=== PATIENT | male | born 1960 | race Hispanic/Latino ===

== ENCOUNTER 2017-03-07 06:04 | Day surgery (SDC) | payer OTHER ==
[2017-02-25 13:48] VITALS: BMI 31.7
[2017-03-07] MEDS ORDERED: Lidocaine 2% Inj (20ml) ONE (06:33)
[2017-03-07] MEDS ORDERED: Phenylephrine 10 mg/ml Inj ONE (06:33)
[2017-03-07] MEDS ORDERED: Iohexol 350mgl/ml 50 ML ONE (06:33)
[2017-03-07] MEDS ORDERED: Iodixanol 320 MG/ML 200 ML BOTTLE IV ONE (06:34)
[2017-03-07] MEDS ORDERED: Iodixanol 320 MG/ML 100 ML BOTTLE IV ONE (06:34)
[2017-03-07] MEDS ORDERED: Nitroglycerin 50mg in D5W 0 MG/0 ML BOTTLE IV ONE (06:34)
[2017-03-07 07:07] LABS: BASO # 0.02 K/mm3 (0.0-2.0); BASO % 0.2 % (0.0-3.0); EOS # 0.2 (0.0-0.7); GRAN # 6.74 (1.4-6.5); GRAN % 76.5 % (50.0-68.0); HEMATOCRIT 42.5 % (42.0-52.0); LYMPH # 1.2 (1.2-3.4); LYMPH % 13.8 % (22.0-35.0); MEAN CELL VOLUME 88.9 fl (80.0-105.0); MEAN CORPUSCULAR HEMOGLOBIN 30.5 pg (25.0-35.0); MEAN CORPUSCULAR HGB CONC 34.4 g/dl (31.0-37.0); MEAN PLATELET VOLUME 11.5 fl (7.0-11.0); MONO # 0.7 (0.1-0.6); MONO % 7.5 % (1.0-6.0); RED CELL DISTRIBUTION WIDTH 13.2 % (11.5-14.5); WHITE BLOOD COUNT 8.8 10^3/ul (4.5-11.0)
[2017-03-07 07:17] LABS: INR 1.07 (0.93-1.08); PARTIAL THROMBOPLASTIN TIME 28.8 Seconds (23.7-30.8)
[2017-03-07] MEDS ORDERED: Midazolam 2 MG/2 ML VIAL ONE ×2 (07:18→08:06)
[2017-03-07 07:19] LABS: BLOOD UREA NITROGEN 28 mg/dL (7-21); CALCIUM 9.5 mg/dL (8.4-10.5); CARBON DIOXIDE 27 mmol/L (21-33); CHLORIDE 102 mmol/L (98-107); GFR AFRICAN-AMERICAN > 60; GLUCOSE,RANDOM 199 mg/dL (70-110); POTASSIUM 3.8 mmol/L (3.6-5.0); SODIUM 140 mmol/L (132-148)
[2017-03-07] MEDS ORDERED: Eptifibatide 20 mg/10mL Inj IVP ONE (08:15)
[2017-03-07] MEDS ORDERED: Sodium Chloride 0.9% 1,000 ML IV SCH (09:15)
--- NOTE | 2017-03-07 11:15 | CARD ---
APPROVED REPORT EKG Measurement Heart [id number] [place] 146P67 [id number] <Conclusion> Normal sinus rhythm Nonspecific intraventricular conduction delay Borderline ECG
--- NOTE | 2017-03-07 11:21 | CARD ---
APPROVED REPORT EKG Measurement Heart [id number] [place] 142P62 [id number] <Conclusion> Normal sinus rhythm Nonspecific intraventricular conduction delay Borderline ECG
--- NOTE | 2017-03-07 18:36 | CARDCATH ---
PROCEDURE DATE: 03/07/2017 CARDIAC CATHETERIZATION AND PERCUTANEOUS TRANSLUMINAL CORONARY ANGIOPLASTY HISTORY: The patient is a 56-year-old male who presents with a markedly abnormal stress test. PAST MEDICAL HISTORY: The patient's past medical history includes diabetes mellitus, hypertension, hypercholesterolemia as well as an active smoker. The patient's stress test was abnormal in preparation for possible hip surgery. The cardiac catheterization was recommended. PROCEDURE: Left heart catheterization with coronary angiography and left ventriculogram. The right femoral artery was cannulated with a 6-Salvadorean sheath. There were no complications. The findings on catheterization revealed the left ventricle that contracted normally. Estimated ejection fraction of 60%. The right coronary artery was a dominant vessel with intimal irregularities without significant stenoses. The left main artery is unremarkable. The circumflex artery in the proximal portion revealed 90% stenoses. The LAD was diffusely diseased with a long complex lesion extending from the proximal into the midportion of approximately 80% to 90%. Diagonal vessels revealed diffuse atherosclerosis. The patient was given two doses of intravenous Integrilin as well as 5000 units of intravenous heparin. Under fluoroscopic guide, the guiding catheter was placed in the ostium of the left main artery. An 0.014 ATW wire was used to cross the critical lesion and the circumflex artery. A 2.5 balloon was utilized to predilate the lesions in the circumflex artery. A 3.5 x 18 mm drug-eluting stent was placed and deployed spanning two lesions in the circumflex artery at 14 atmospheres of pressure. Repeat coronary angiography revealed an excellent result with no residual stenosis and HUMBERTO III flow. The test was then stopped due to the mild hematoma in the right groin. Angio-Seal was used to close the right femoral artery. The patient tolerated the procedure well. In summary, the procedure was successful PTCA and stent of a critically stenosed proximal circumflex artery. Cardiac catheterization reveals critical lesions in the circumflex artery as well as the LAD. LV function is normal. On the sheath shot, peripheral vascular disease was noted in the iliac arteries. FINDINGS: Given these findings, the patient will need to remain on aspirin indefinitely and Plavix for at least 6 months to a year. His hip surgery will need to be delayed. I have discussed the need for cardiac risk reduction program including cessation of smoking with the patient and his in detail. Roger Razo MD
[2017-03-08 08:58] LABS: BLOOD UREA NITROGEN 18 mg/dL (7-21); CALCIUM 9.4 mg/dL (8.4-10.5); CARBON DIOXIDE 31 mmol/L (21-33); CHLORIDE 100 mmol/L (98-107); GFR AFRICAN-AMERICAN > 60; GLUCOSE,RANDOM 158 mg/dL (70-110); POTASSIUM 4.3 mmol/L (3.6-5.0); SODIUM 142 mmol/L (132-148)
[2017-03-08 09:09] VITALS: O2SAT 95
[2017-03-08 12:22] VITALS: BP 115/82; PULSE 82; RESP 21; TEMP 98.7
--- NOTE | 2017-03-08 12:58 | CARD ---
APPROVED REPORT EKG Measurement Heart [id number] [place] 140P52 [id number] <Conclusion> Normal sinus rhythm Normal ECG
--- NOTE | 2017-03-08 14:29 | PN ---
DATE: 03/08/2017 SUBJECTIVE: The patient is asymptomatic. He is ambulating. OBJECTIVE: VITAL SIGNS: Blood pressure is 115/82, the heart rate is in the 80s. NECK: Negative JVD. LUNGS: Without rales. HEART: S1, S2. EXTREMITIES: Without edema. LABORATORY DATA: Reveals a potassium of 4.3 with a glucose of 158. IMPRESSION: 1. Stable post PTCA and stent of the circumflex artery. 2. Multivessel CAD. 3. COPD. 4. Peripheral vascular disease. 5. Hypertension. 6. Hypercholesterolemia. 7. Diabetes mellitus. PLAN: Given these findings, the patient can be discharged today. The patient will be readmitted next week for staged PTCA of the LAD. Roger Razo MD
== END 2017-03-08 13:56 | disposition home or self-care (01) ==
LOC: CATH 06:04 → 2RSO 09:21 → CATH 03-08 13:56
PROVIDERS: ATTEND Internal Medicine
DX: I25.10 Atherosclerotic heart disease of native coronary artery without angina pectoris (principal); I10 Essential (primary) hypertension; J44.9 Chronic obstructive pulmonary disease, unspecified; I73.9 Peripheral vascular disease, unspecified; F17.200 Nicotine dependence, unspecified, uncomplicated; E78.00 Pure hypercholesterolemia, unspecified; E11.9 Type 2 diabetes mellitus without complications; Z79.84 Long term (current) use of oral hypoglycemic drugs
CPT/HCPCS: 36415 ×2; 80048 ×2; 85025; 85610; 85730; 86850; 86900; 93005 ×2; 93458; 99152; 99153; C1725; C1760; C1769 ×2; C1874; C1887; C2629; C9600; J1327; J1644 ×2; J2250; J3010; J7030; J7040; Q9967

== ENCOUNTER 2017-03-14 06:15 | Day surgery (SDC) | payer OTHER ==
[2017-03-10 11:45] VITALS: BMI 31.4
[2017-03-14 06:55] LABS: BLOOD UREA NITROGEN 33 mg/dL (7-21); CALCIUM 9.5 mg/dL (8.4-10.5); CARBON DIOXIDE 26 mmol/L (21-33); CHLORIDE 102 mmol/L (98-107); CHOLESTEROL 143 mg/dL (130-200); GFR AFRICAN-AMERICAN > 60; GLUCOSE,RANDOM 156 mg/dL (70-110); POTASSIUM 4.1 mmol/L (3.6-5.0); SODIUM 143 mmol/L (132-148)
[2017-03-14 07:01] LABS: INR 1.11 (0.93-1.08); PARTIAL THROMBOPLASTIN TIME 26.4 Seconds (23.7-30.8)
[2017-03-14 07:04] VITALS: O2SAT 20
[2017-03-14 07:09] LABS: BASO # 0.03 K/mm3 (0.0-2.0); BASO % 0.3 % (0.0-3.0); EOS # 0.2 (0.0-0.7); EOS % 1.9 % (1.5-5.0); GRAN # 6.58 (1.4-6.5); GRAN % 75.6 % (50.0-68.0); HEMATOCRIT 40.8 % (42.0-52.0); LYMPH # 1.5 (1.2-3.4); LYMPH % 16.7 % (22.0-35.0); MEAN CELL VOLUME 89.5 fl (80.0-105.0); MEAN CORPUSCULAR HEMOGLOBIN 30.5 pg (25.0-35.0); MEAN CORPUSCULAR HGB CONC 34.1 g/dl (31.0-37.0); MEAN PLATELET VOLUME 11.3 fl (7.0-11.0); MONO # 0.5 (0.1-0.6); MONO % 5.5 % (1.0-6.0); RED CELL DISTRIBUTION WIDTH 13.6 % (11.5-14.5); WHITE BLOOD COUNT 8.7 10^3/ul (4.5-11.0)
[2017-03-14] MEDS ORDERED: Lidocaine 2% Inj (20ml) ONE (09:39)
[2017-03-14] MEDS ORDERED: Iohexol 350 MG/100 ML VIAL ONE (09:40)
[2017-03-14] MEDS ORDERED: Iohexol 350mgl/ml 50 ML ONE (09:40)
[2017-03-14] MEDS ORDERED: Midazolam 2 MG/2 ML VIAL ONE ×2 (09:41→09:58)
[2017-03-14] MEDS ORDERED: Nitroglycerin 50mg in D5W 0 MG/0 ML BOTTLE IV ONE (09:50)
[2017-03-14] MEDS ORDERED: Eptifibatide 20 mg/10mL Inj IVP ONE (10:27)
[2017-03-14] MEDS ORDERED: Sodium Chloride 0.9% 1,000 ML IV SCH (11:00)
--- NOTE | 2017-03-14 11:48 | CARDCATH ---
PROCEDURE DATE: 03/14/2017 PROCEDURE: PTCA and stent of an LAD. HISTORY: The patient is a 56-year-old male who presents for PTCA and stent to the LAD. The patient's past medical history includes COPD, peripheral vascular disease, diabetes mellitus and hypercholesterolemia. The patient underwent successful PTCA and stent of multiple lesions in the circumflex artery last week and presents for PTCA of a critically stenosed LAD. DESCRIPTION: The left femoral artery was cannulated with a 6-Tamazight sheath. There were no complications. FINDINGS: The findings on initial coronary angiography revealed patent stents in the circumflex artery; in the midportion of the obtuse marginal branch, there was a 50% stenosis noted. The LAD revealed a long, critical lesion that extended to the proximal, into the bend of the midportion of the LAD. The stenoses were approximately 80%. The patient was started on intravenous Angiomax. On the fluoroscopic guide, the guiding catheter was placed in the ostium of the left main artery and 0.014 ATW wire was placed past critical lesion. A second wire was placed for better support. A 2.5 balloon was utilized to predilate the lesion. Two drug-eluting stents were placed and deployed in the mid extending into the proximal LAD. Postdilatation was performed with a 3.25 noncompliant balloon. Repeat coronary angiography revealed an excellent result with no residual stenosis and HUMBERTO III flow. Angio-Seal was used to close the femoral artery site. The patient tolerated the procedure well. SUMMARY: In summary, the procedure was successful PTCA and stent of a long LAD stenosis extending from the proximal into the midportion of the LAD. Coronary angiography revealed a patent stent in the circumflex artery with a 50% stenosis in the midportion. Given these findings, the patient will need to be on aspirin indefinitely and change to Effient given that his PRU is subtherapeutic with Plavix. We will start the patient on Effient. The patient needs to continue to avoid smoking and undergo a strict cardiac risk reduction program. Roger Razo MD
[2017-03-14] MEDS ORDERED: Ergocalciferol 50,000 Intl Units Cap PO SCH (12:00)
[2017-03-14] MEDS: ICOSAPENT ETHYL 2 GM PO SCH ×2 (14:14→17:27)
[2017-03-14] MEDS: Pantoprazole 20 mg EC Tab PO SCH (17:25)
[2017-03-14 19:01] VITALS: BP 107/64; RESP 20; TEMP 97
--- NOTE | 2017-03-14 20:50 | CARD ---
APPROVED REPORT EKG Measurement Heart [id number] [place] 148P56 [id number] <Conclusion> Normal sinus rhythm Normal ECG
[2017-03-15] MEDS: Pantoprazole 20 mg EC Tab PO SCH (06:26)
[2017-03-15 06:51] LABS: BASO # 0.03 K/mm3 (0.0-2.0); BASO % 0.4 % (0.0-3.0); EOS # 0.2 (0.0-0.7); EOS % 1.9 % (1.5-5.0); GRAN # 5.9 (1.4-6.5); GRAN % 74.1 % (50.0-68.0); HEMATOCRIT 37.5 % (42.0-52.0); LYMPH # 1.3 (1.2-3.4); LYMPH % 16.6 % (22.0-35.0); MEAN CELL VOLUME 90.1 fl (80.0-105.0); MEAN CORPUSCULAR HEMOGLOBIN 30.3 pg (25.0-35.0); MEAN CORPUSCULAR HGB CONC 33.6 g/dl (31.0-37.0); MEAN PLATELET VOLUME 11.4 fl (7.0-11.0); MONO # 0.6 (0.1-0.6); RED CELL DISTRIBUTION WIDTH 13.9 % (11.5-14.5)
[2017-03-15 07:07] LABS: BLOOD UREA NITROGEN 22 mg/dL (7-21); CALCIUM 9.1 mg/dL (8.4-10.5); CARBON DIOXIDE 28 mmol/L (21-33); CHLORIDE 102 mmol/L (95-110); GFR AFRICAN-AMERICAN > 60; GLUCOSE,RANDOM 139 mg/dL (70-110); POTASSIUM 4.7 mmol/L (3.6-5.0); SODIUM 141 mmol/L (132-148)
--- NOTE | 2017-03-15 08:08 | HP ---
HISTORY OF PRESENT ILLNESS: The patient is a 56-year-old morbidly obese male who has been admitted after cardiac catheterization and angioplasty today, which is the second angioplasty by Dr. Razo. The patient was admitted after the angioplasty of the left anterior descending artery. The patient was recently hospitalized on 03/07/2017 for angioplasty of other vessel. The patient's code status is FULL CODE. Living will advance directive none. ALLERGIES: NONE. Height is 5 feet 8 inches. Weight is 270. BMI is 32. SOCIAL HISTORY: Positive for active smoking. Denies alcohol. Denies drug use. Denies communicable transmissible disease. HOME MEDICATION: Vascepa 2 g twice a day, Lipitor 20 mg daily, Ecotrin 81 mg daily, vitamin D3 50,000 units three times a week, Edarbyclor 40/25 daily, Mobic 15 mg daily, Plavix 75 mg daily, metformin 500 mg once or twice a day. PAST MEDICAL AND SURGICAL HISTORY: The patient has recently started seeing me in the last month or two. The patient has not been seen by any doctor for many years. The patient's past medical history is significant for hypertension, history of obesity, history of dyslipidemia, hypertriglyceridemia, history of hypovitaminosis D, history of hypertension, history of type 2 [id number] diabetes mellitus, history triglyceridemia, history of severe degenerative joint disease and severe osteoarthritis of the hip, history of gait dysfunction. The patient recently underwent stress test with Dr. Razo also, which was found to be abnormal in anticipation for hip surgery which was supposed to be done, but the patient needed a cardiac clearance for which the patient underwent a stress test which was abnormal and on the basis of those tests, the patient was scheduled for cardiac catheterization on 03/07/2017 and 03/14/2017. The patient's past medical history is also significant for gait dysfunction, history of hip pain, history of left ventricular ejection fraction of 63%, history of aortic valve sclerosis without stenosis, history of abnormal myocardial stress test showing equivocal SPECT myocardial perfusion study with reversible apical inferior defect suspicious of an ischemia with a left ventricular ejection fraction of 77%. The patient's past medical history is significant for obesity, history of questionable noncompliance in the past. The patient's past medical history is significant for multivessel coronary artery disease, history of angioplasty of the left circumflex with drug-eluting stent of 03/07/2017, history of 90% stenosis of the LAD and status post stent placement of the left LAD, history of multivessel coronary artery disease, history of abnormal stress test, history of diabetes mellitus, history of dyslipidemia. The patient is seen in telemetry 273, bed #2. The patient is lying in the bed post cardiac catheterization. PHYSICAL EXAMINATION: VITAL SIGNS: T-max is 97.1. Telemetry shows sinus rhythm, heart rate 65-68, blood pressure 116/62, 137/102, respirations 18-20. HEENT: Head examination normocephalic, atraumatic. HEENT examination shows pink conjunctivae. Anicteric sclerae. No oropharyngeal lesion. No neck rigidity. CHEST: Symmetrical. LUNGS: Shows no rales, crackles, or wheezing. Occasional rhonchi. CARDIOVASCULAR: S1 and S2, regular rhythm. Questionable soft systolic murmur right second intercostal space. ABDOMEN: Protuberant. Positive bowel sound. Positive ecchymosis of the right groin noted. Left groin dressing noted. Pulses are palpable with Doppler. MUSCULOSKELETAL: Shows a body mass index of 32. NEUROLOGIC: Examination is limited. Gait examination not tested as the patient is lying in the bed. VASCULAR: Palpable pulses. DIAGNOSTICS: WBC 8.7, hemoglobin/hematocrit 14 and 41, platelets 238. Granulocytes 76. PT/PTT 12 and 26.4. Sodium 143, potassium 4.1, chloride 102, CO2 26, anion gap 13, BUN 33, creatinine 1.1, GFR greater than 60, glucose 156, triglyceride 206, cholesterol 143, HDL 28, LDL 28.. The patient's cardiac catheterization report from 03/14/2017 reviewed. IMPRESSION AND PLAN: 1. Multivessel coronary artery disease. 2. History of hypertension, history of hypertriglyceridemia, history of cholesterolemia, history of severe osteoarthritis of the hips, history of nicotine dependence and chronic obstructive pulmonary disease, history of dyslipidemia. 3. Status post successfully angioplasty and stent placement of the left circumflex artery, history of angioplasty and drug-eluting stent placement of the left circumflex artery, history of multivessel coronary artery disease, history of 50% stenosis of the mid obtuse marginal, history of 80% stenosis of the left anterior descending, proximal lesion into the bend of the midportion of the left anterior descending. 4. Status post successful angioplasty and drug-eluting stent of the long left anterior descending stenosis extending from the proximal into the midportion of the left anterior descending. 5. Patent stent of the left circumflex artery with a 50% stenosis in the midportion. 6. History of hypertension. 7. History of hypertriglyceridemia, hypercholesteremia, history of hypovitaminosis D, history of type 2 diabetes mellitus, history of obesity, history of severe osteoarthritis of the hip. PLAN: At this time, the patient is to be admitted to [facility] Telemetry post cardiac catheterization. The patient has been ordered aspirin 81 daily, Effient 10 mg daily, Plavix stopped, Lipitor 40 mg daily, IV fluid 0.9 normal saline at 100 mL an hour, EKG daily ordered. The patient will be resumed on most of the home medication, which he is taking. The patient will be started on GI, DVT prophylaxis. The patient at present will be consulted with Cardiology, Dr. Roger Razo. The patient's further management will be dependent upon the patient's condition, diagnosis, treatment plan, management plan, and as per Cardiology recommendation about discharge planning. The patient will be considered for possible discharge if the patient is stable tomorrow. The patient will be on bedrest post cardiac catheterization post angioplasty protocol. The patient has been again counseled about cessation of smoking. At present, the patient's further management will be dependent upon the patient's clinical condition, hemodynamic status, and as per the patient's response to therapeutic intervention as per Cardiology recommendation. Dictated and electronically signed, not read. Catrachito Mike MD [facility]
[2017-03-15] MEDS: ICOSAPENT ETHYL 2 GM PO SCH (09:23)
--- NOTE | 2017-03-15 13:18 | PN ---
DATE: 03/15/2017 CARDIOLOGY FOLLOWUP SUBJECTIVE: The patient is asymptomatic post PTCA and stent. OBJECTIVE: VITAL SIGNS: On physical exam, the blood pressure is 107/64, the heart rate is in the 50s. NECK: Negative JVD. LUNGS: Without rales. HEART: With S1, S2. EXTREMITIES: Without edema. LABORATORY: BUN and creatinine are unremarkable. Glucose is 139. Hemoglobin is 12.6. IMPRESSION: 1. Stable post multivessel percutaneous transluminal coronary angioplasty and stent. 2. Coronary artery disease. 3. Diabetes mellitus. 4. Hypercholesterolemia. Given these findings, the patient will be discharged on Effient given his resistance to Plavix. A cardiac risk reduction program has been discussed with the patient. The patient has been enrolled in cardiac rehab. Roger Razo MD
--- NOTE | 2017-03-15 14:07 | CP.PCM.DIS ---
<Gerhard Honeycutt - Last Filed: 03/15/17 14:13> Provider - Provider Date of Admission: 04/13/17 Attending physician: Roger Razo MD Primary care physician: Catrachito Mike MD Consults: Cardiology: Manuel Razo Time Spent in preparation of Discharge (in minutes): 45 Hospital Course - Lab Results Lab Results: Most Recent Lab Values WBC 8.0 10^3/ul (4.5-11.0) 03/15/17 06:06 RBC 4.16 10^6/uL (3.5-6.1) 03/15/17 06:06 Hgb 12.6 g/dL (14.0-18.0) L 03/15/17 06:06 Hct 37.5 % (42.0-52.0) L 03/15/17 06:06 MCV 90.1 fl (80.0-105.0) 03/15/17 06:06 MCH 30.3 pg (25.0-35.0) 03/15/17 06:06 MCHC 33.6 g/dl (31.0-37.0) 03/15/17 06:06 RDW 13.9 % (11.5-14.5) 03/15/17 06:06 Plt Count 193 10^3/uL (120.0-450.0) 03/15/17 06:06 MPV 11.4 fl (7.0-11.0) H 03/15/17 06:06 Gran % 74.1 % (50.0-68.0) H 03/15/17 06:06 Lymph % (Auto) 16.6 % (22.0-35.0) L 03/15/17 06:06 [place] % (Auto) 7.0 % (1.0-6.0) H 03/15/17 06:06 Eos % (Auto) 1.9 % (1.5-5.0) 03/15/17 06:06 Baso % (Auto) 0.4 % (0.0-3.0) 03/15/17 06:06 Gran # 5.90 (1.4-6.5) 03/15/17 06:06 Lymph # 1.3 (1.2-3.4) 03/15/17 06:06 [place] # 0.6 (0.1-0.6) 03/15/17 06:06 Eos # 0.2 (0.0-0.7) 03/15/17 06:06 Baso # 0.03 K/mm3 (0.0-2.0) 03/15/17 06:06 PT 12.0 Seconds (9.9-11.8) H 03/14/17 06:38 INR 1.11 (0.93-1.08) H 03/14/17 06:38 APTT 26.4 Seconds (23.7-30.8) 03/14/17 06:38 Sodium 141 mmol/L (132-148) 03/15/17 06:06 Potassium 4.7 mmol/L (3.6-5.0) 03/15/17 06:06 Chloride 102 mmol/L (95-110) 03/15/17 06:06 Carbon Dioxide 28 mmol/L (21-33) 03/15/17 06:06 Anion Gap 16 (10-20) 03/15/17 06:06 BUN 22 mg/dL (7-21) H 03/15/17 06:06 Creatinine 0.9 mg/dL (0.5-1.4) 03/15/17 06:06 Est GFR ( Amer) > 60 03/15/17 06:06 Est GFR (Non-Af Amer) > 60 03/15/17 06:06 POC Glucose (mg/dL) 152 mg/dL (65-110) H 03/15/17 12:00 Random Glucose 139 mg/dL (70-110) H 03/15/17 06:06 Calcium 9.1 mg/dL (8.4-10.5) 03/15/17 06:06 Triglycerides 206 mg/dL (35-160) H 03/14/17 06:38 Cholesterol 143 mg/dL (130-200) 03/14/17 06:38 LDL Cholesterol Direct 77 mg/dL (0-129) 03/14/17 06:38 HDL Cholesterol 28 mg/dL (29-60) L 03/14/17 06:38 Blood Type A POSITIVE 03/14/17 06:38 Antibody Screen Negative 03/14/17 06:38 BBK History Checked Patient has bt 03/14/17 06:38 - Hospital Course Hospital Course: 56yo M with PMHx including HTN, HLD, Vitamin D deficiency, DM, DJD, SA admitted in the hospital s/p Coronary angioplasty w/ stent. Patient was taken in by Dr. Razo for angio and stent of left anterior descending artery. The patient has multivessel coronary artery disease and a hx of abnormal stress test. Patient is resistant to Plavix and thus, it was stopped and Effient started. Patient had no significant complications post-operatively apart from a mild, stable ecchymosis of the right groin. Patient was cleared for discharge by cardiology on Effient. Patient is enrolled in cardiac rehab. All findings and recommendations were discussed with the patient in detail. All questions addressed. Patient understands and agrees with plan. He is to follow up with Dr. Razo and Dr. Mike as outpatient. Discharge Exam - Head Exam Head Exam: ATRAUMATIC, NORMAL INSPECTION, NORMOCEPHALIC - Eye Exam Eye Exam: EOMI, Normal appearance - ENT Exam ENT Exam: Mucous Membranes Moist - Respiratory Exam Respiratory Exam: UNREMARKABLE. absent: Respiratory Distress - Cardiovascular Exam Cardiovascular Exam: REGULAR RHYTHM, RRR. absent: JVD - GI/Abdominal Exam GI & Abdominal Exam: Soft. absent: Distended, Guarding, Rigid, Tenderness - Extremities Exam Extremities exam: normal inspection - Neurological Exam Neurological exam: Alert, CN II-XII Intact, Normal Gait, Oriented x3 - Skin Additional comments: mild stable ecchymosis to right groin. Discharge Plan - Discharge Medications Prescriptions: Prasugrel [Effient] 10 mg PO DAILY #90 tab - Follow Up Plan Condition: GOOD Disposition: HOME/ ROUTINE Instructions: Coronary Artery Disease (DC), Coronary Intravascular Stent Placement (DC) Additional Instructions: DISCHARGE HOME AFTER CLEARED BY CARDIOLOGY FOLLOW UP WITHIN 1 WEEK DISCHARGE MEDS PER AMBULATORY ORDERS Referrals: Catrachito Mike MD [Primary Care Provider] - 1 Week (DISCHARGE HOME AFTER CLEARED BY CARDIOLOGY FOLLOW UP WITHIN 1 WEEK DISCHARGE MEDS PER AMBULATORY ORDERS) <Catrachito Mike - Last Filed: 03/16/17 22:30> Provider - Provider Attending physician: Roger Razo MD Primary care physician: Catrachito Mike MD Hospital Course - Lab Results Lab Results: Most Recent Lab Values WBC 8.0 10^3/ul (4.5-11.0) 03/15/17 06:06 RBC 4.16 10^6/uL (3.5-6.1) 03/15/17 06:06 Hgb 12.6 g/dL (14.0-18.0) L 03/15/17 06:06 Hct 37.5 % (42.0-52.0) L 03/15/17 06:06 MCV 90.1 fl (80.0-105.0) 03/15/17 06:06 MCH 30.3 pg (25.0-35.0) 03/15/17 06:06 MCHC 33.6 g/dl (31.0-37.0) 03/15/17 06:06 RDW 13.9 % (11.5-14.5) 03/15/17 06:06 Plt Count 193 10^3/uL (120.0-450.0) 03/15/17 06:06 MPV 11.4 fl (7.0-11.0) H 03/15/17 06:06 Gran % 74.1 % (50.0-68.0) H 03/15/17 06:06 Lymph % (Auto) 16.6 % (22.0-35.0) L 03/15/17 06:06 [place] % (Auto) 7.0 % (1.0-6.0) H 03/15/17 06:06 Eos % (Auto) 1.9 % (1.5-5.0) 03/15/17 06:06 Baso % (Auto) 0.4 % (0.0-3.0) 03/15/17 06:06 Gran # 5.90 (1.4-6.5) 03/15/17 06:06 Lymph # 1.3 (1.2-3.4) 03/15/17 06:06 [place] # 0.6 (0.1-0.6) 03/15/17 06:06 Eos # 0.2 (0.0-0.7) 03/15/17 06:06 Baso # 0.03 K/mm3 (0.0-2.0) 03/15/17 06:06 PT 12.0 Seconds (9.9-11.8) H 03/14/17 06:38 INR 1.11 (0.93-1.08) H 03/14/17 06:38 APTT 26.4 Seconds (23.7-30.8) 03/14/17 06:38 Sodium 141 mmol/L (132-148) 03/15/17 06:06 Potassium 4.7 mmol/L (3.6-5.0) 03/15/17 06:06 Chloride 102 mmol/L (95-110) 03/15/17 06:06 Carbon Dioxide 28 mmol/L (21-33) 03/15/17 06:06 Anion Gap 16 (10-20) 03/15/17 06:06 BUN 22 mg/dL (7-21) H 03/15/17 06:06 Creatinine 0.9 mg/dL (0.5-1.4) 03/15/17 06:06 Est GFR ( Amer) > 60 03/15/17 06:06 Est GFR (Non-Af Amer) > 60 03/15/17 06:06 POC Glucose (mg/dL) 152 mg/dL (65-110) H 03/15/17 12:00 Random Glucose 139 mg/dL (70-110) H 03/15/17 06:06 Calcium 9.1 mg/dL (8.4-10.5) 03/15/17 06:06 Triglycerides 206 mg/dL (35-160) H 03/14/17 06:38 Cholesterol 143 mg/dL (130-200) 03/14/17 06:38 LDL Cholesterol Direct 77 mg/dL (0-129) 03/14/17 06:38 HDL Cholesterol 28 mg/dL (29-60) L 03/14/17 06:38 Blood Type A POSITIVE 03/14/17 06:38 Antibody Screen Negative 03/14/17 06:38 BBK History Checked Patient has bt 03/14/17 06:38 Attending/Attestation - Attestation I have personally seen and examined this patient.: Yes I have fully participated in the care of the patient.: Yes I have reviewed all pertinent clinical information, including history, physical exam and plan: Yes
[2017-03-15 16:44] VITALS: PULSE 75
--- NOTE | 2017-03-15 22:46 | CARD ---
APPROVED REPORT EKG Measurement Heart [id number] [place] 136P58 [id number] <Conclusion> Normal sinus rhythm Nonspecific intraventricular conduction delay Borderline ECG
--- NOTE | 2017-03-16 06:45 | DS ---
LOCATION: The patient is seen in room 273, bed 2. HISTORY OF PRESENT ILLNESS: The patient is out of bed to chair. The patient was alert, awake, and responsive. Denies any chest pain. Denies shortness of breath. Denies nausea, vomiting, diarrhea, constipation. The patient's nurses notes were reviewed. Overnight, there was no adverse event documented. The patient stayed stable post cardiac catheterization and angioplasty. PHYSICAL EXAMINATION: VITAL SIGNS: T-max is afebrile at 98.2. Telemetry shows sinus rhythm, heart rate in 60s and 70s. The patient's blood pressure 107/64, 103/41, 110/60, respiration is 20. HEENT: Head examination is normocephalic and atraumatic. HEENT examination shows pink conjunctivae. Anicteric sclerae. No oropharyngeal lesion. No neck rigidity. CHEST EXAMINATION: Kyphosis. LUNGS EXAMINATION: Shows no rales, crackles, or wheezing. Occasional rhonchi in the upper lung ruffin. CARDIOVASCULAR: S1, S2, regular rhythm. ABDOMEN: Soft and obese. Positive bowel sounds. GENITALIA: Male. Positive right groin and inguinal area ecchymosis noted. Left groin dressing noted. No ecchymosis or hematoma noted. VASCULAR EXAMINATION: Palpable pulses. MUSCULOSKELETAL EXAMINATION: Shows a body mass index of 32. NEUROLOGIC: Cranial nerves II-XII intact. Gait examination is independent with some gait dysfunction secondary to hip osteoarthritis. PSYCHIATRIC EXAMINATION: Negative. DIAGNOSTICS: On 03/15/2017, sodium 141, potassium 4.7, chloride 102, CO2 28, anion gap 16, BUN 22, creatinine 0.9, GFR greater than 60, glucose 152, 157, 139, 134. Triglyceride is down to 206, which was greater than 500 in the office recently, triglyceride is down to 206, cholesterol is down to 143, LDL is down to 77, but HDL is still 28 which is very low. WBC 8.0, hemoglobin/hematocrit 12.6/37.5, platelet 193. Granulocytes 74% segs. The patient seen by Cardiology today. FINAL IMPRESSION AND DISCHARGE DIAGNOSES: 1. Multivessel coronary artery disease. 2. Abnormal myocardial stress test. 3. Status post successful angioplasty and a stent placement of the long left anterior descending artery stenosis extending from the proximal into the midportion of the LAD. 4. Status post recent stent placement of the left circumflex artery with 50% stenosis of the mid left circumflex artery. 5. Patent stent of the left circumflex artery, 50% stenosis of the left circumflex midportion and obtuse marginal branches. 6. Long critical lesion of the left anterior descending extending from the proximal into the bend of the midportion of the left anterior descending artery, 80% stenosis. 7. Obesity. 8. History of hypertension. 9. His history of nicotine dependence. 10. Mild normocytic anemia with granulocytosis. 11. Type 2 [id number] diabetes mellitus. 12. Hyperglycemia. 13. Hypertriglyceridemia, hypercholesteremia with decreased HDL. 14. Gait dysfunction secondary to osteoarthritis of the hips. 15. History of dyslipidemia. 16. Hypovitaminosis D. 17. Degenerative joint disease. 1. Multivessel coronary artery disease. 2. History of hypertension, history of hypertriglyceridemia, history of cholesterolemia, history of severe osteoarthritis of the hips, history of nicotine dependence and chronic obstructive pulmonary disease, history of dyslipidemia. 3. Status post successfully angioplasty and stent placement of the left circumflex artery, history of angioplasty and drug-eluting stent placement of the left circumflex artery, history of multivessel coronary artery disease, history of 50% stenosis of the mid obtuse marginal, history of 80% stenosis of the left anterior descending, proximal lesion into the bend of the midportion of the left anterior descending. 4. Status post successful angioplasty and drug-eluting stent of the long left anterior descending stenosis extending from the proximal into the midportion of the left anterior descending. 5. Patent stent of the left circumflex artery with a 50% stenosis in the midportion. 6. History of hypertension. 7. History of hypertriglyceridemia, hypercholesteremia, history of hypovitaminosis D, history of type 2 diabetes mellitus, history of obesity, history of severe osteoarthritis of the hip. PLAN: At this time, the patient is discharged on following medications; according to the topstitcher zigzag, the patient has Plavix resistance since his PRU is subtherapeutic with Plavix. The patient was discharged home on aspirin 81 mg daily, Lipitor 20 mg daily, Edarbyclor 40/25 mg daily, vitamin D2 called ergocalciferol 50,000 units Tuesday, Tuesday, and Tuesday, Vascepa 2 g twice a day, Mobic 15 mg daily, Protonix 40 mg daily, Effient 10 mg daily, metformin 500 mg daily. The patient was discharged home with discharge followup with Dr. Mike within one week with discharge meds as per ambulatory orders. At present, the patient was discharged on above medications. Time spent in the entire discharge process more than 45 minutes. Dictated and electronically signed, not read. Catrachito Mike MD [facility]
[2017-03-16] MEDS ORDERED: Non Formulary Medication (Cholecalciferol (Vitamin D3) [Vitamin D3] 50,000 UNIT) PO SCH (10:00)
== END 2017-03-15 13:30 | disposition home or self-care (01) ==
LOC: CATH 06:15 → 2RSO 11:12 → CATH 03-15 13:30
PROVIDERS: ATTEND Internal Medicine Cardiovascular Disease
DX: I25.10 Atherosclerotic heart disease of native coronary artery without angina pectoris (principal); E11.9 Type 2 diabetes mellitus without complications; E78.00 Pure hypercholesterolemia, unspecified; I73.9 Peripheral vascular disease, unspecified; J44.9 Chronic obstructive pulmonary disease, unspecified; Z95.5 Presence of coronary angioplasty implant and graft; E66.01 Morbid (severe) obesity due to excess calories; Z68.31 Body mass index [BMI] 31.0-31.9, adult; F17.200 Nicotine dependence, unspecified, uncomplicated; E78.5 Hyperlipidemia, unspecified; E78.1 Pure hyperglyceridemia; E55.9 Vitamin D deficiency, unspecified; M19.90 Unspecified osteoarthritis, unspecified site; I10 Essential (primary) hypertension; M16.10 Unilateral primary osteoarthritis, unspecified hip; R26.9 Unspecified abnormalities of gait and mobility; R94.39 Abnormal result of other cardiovascular function study; I35.0 Nonrheumatic aortic (valve) stenosis; Z91.19 Patient's noncompliance with other medical treatment and regimen
CPT/HCPCS: 36415 ×2; 80048 ×2; 80061; 82948 ×2; 85025 ×2; 85610; 85730; 86850; 86900; 93005 ×2; 99152; 99153; C1725 ×3; C1760; C1769 ×2; C1874 ×2; C1887; C2629; C9600; J0583; J1327; J1644; J2250; J3010; J7040 ×2; Q9967 ×2